=== PATIENT | female | born 1995 | race Caucasian/White ===

== ENCOUNTER → 2019-04-03 07:32 | Outpatient (CLI) | payer BC, SELFPAY ==
--- NOTE | ~2019-04-03 | XR_ITS ---
XR cervical spine min 6V DATE: 04/03/2019 08:34 INDICATION: Neck pain. Migraine headache. TECHNIQUE: AP, lateral, swimmer's, open-mouth views. Flexion and extension lateral views. COMPARISON: None FINDINGS: There is mild reversal of cervical curvature. C1 and C2 are normally aligned and the odonto id process is intact. No fracture or dislocation or locked facet is evident. No instability on flexio n or extension is detected. No prevertebral soft tissue swelling. There is minimal loss of interspace height at C4-5. IMPRESSION: Minimal loss of interspace height at C4-5. Reviewed, dictated and finalized at location B. CIPAL INVESTIGATOR
--- NOTE | ~2019-04-03 | XR_ITS ---
LUMBAR SPINE INDICATION: Back pain TECHNIQUE: 6 views lumbar spine including flexion/extension COMPARISON: None FINDINGS: No fracture, subluxation or dislocation. No evidence for spondylolysis or spondylolisthesi s. Vertebral bodies and disk spaces are preserved. IMPRESSION: 1: No significant abnormality of the lumbar spine identified. Reviewed, dictated and finalized at location A. ER MAINTAINER
== END ==
DX: G43.011 Migraine without aura, intractable, with status migrainosus (principal); M79.12 Myalgia of auxiliary muscles, head and neck; M79.18 Myalgia, other site; M99.03 Segmental and somatic dysfunction of lumbar region; M54.42 Lumbago with sciatica, left side; M54.2 Cervicalgia
CPT/HCPCS: 72052; 72114